=== PATIENT | female | born 1995 | race Caucasian/White ===

== ENCOUNTER 2017-03-25 17:13 | Emergency (ER) | payer MEDICAID ==
[~2017-03-25] VITALS: Ht 160 cm; Wt 127.0 kg
[2017-03-25 17:26] VITALS: BP 110/63
[2017-03-25 18:42] VITALS: BP 110/63
== END 2017-03-25 18:43 | disposition home or self-care (01) ==
LOC: MED 17:13
DX: N93.9 Abnormal uterine and vaginal bleeding, unspecified (principal)
CPT/HCPCS: 81002; 81025; 99282